=== PATIENT | male | born 1970 | race Caucasian/White ===

== ENCOUNTER 2020-09-07 12:45 | Emergency (ER) | payer MEDICAID ==
[~2020-09-07] VITALS: Ht 180.3 cm; Wt 89.4 kg
[2020-09-07] MEDS ORDERED: OXYcodone/APAP 5/325MG TABLET PO ONE (13:30)
[2020-09-07] MEDS ORDERED: DIPH,PERTUSS(ACELL),TET VAC/PF 0.5 ML IM-VACC ONE ×2 (13:30→13:34)
[2020-09-07] MEDS ORDERED: AMLODIPINE 5 MG TABLET PO ONE (13:30)
[2020-09-07] MEDS ORDERED: LIDOCAINE 2%, 20ML SQ ONE (13:30)
[2020-09-07] MEDS ORDERED: AMLODIPINE 5 MG TABLET ONE (13:34)
[2020-09-07] MEDS ORDERED: LIDOCAINE-MPF 2% ,5ML ONE (13:34)
[2020-09-07] MEDS ORDERED: OXYcodone/APAP 5/325MG TABLET ONE (13:34)
--- NOTE | 2020-09-07 15:01 | NUR ---
PT UPRIGHT ON GURNEY AWAKE & COMFORTABLE, NAD- DENIES PAIN, RESPONDS APPROP TO STAFF, NO NEEDS AT THIS TIME, VISITOR AT BS, CALL LIGHT WITHIN REACH.
[2020-09-07] MEDS ORDERED: CEPHALEXIN 500 MG CAPSULE ONE (15:58)
[2020-09-07] MEDS ORDERED: NEOSPORIN OINT. PKT 1 PACKET ONE (15:58)
[2020-09-07 16:00] VITALS: BP 177/111
[2020-09-07] MEDS ORDERED: CEPHALEXIN 500 MG CAPSULE PO ONE (16:00)
--- NOTE | 2020-09-07 16:00 | NUR ---
PT REMAINS UPRIGHT ON GURNEY AWAKE & COMFORTABLE, NAD- DENIES PAIN, AWAITING WOUND DRESSING, RESPONDS APPROP TO STAFF, NO NEEDS AT THIS TIME, VISITOR AT BS, CALL LIGHT WITHIN REACH.
--- NOTE | 2020-09-07 16:22 | NUR ---
Patient given wound care/discharge instructions and Rx, they have confirmed that they understand the instructions. Patient ambulatory with steady gait. NAD, all questions answered appropriately, denies additional needs at this time. No personal belongings left in room after discharge.
== END 2020-09-07 16:24 | disposition home or self-care (01) ==
LOC: ED 13:30
DX: S60.111A Contusion of right thumb with damage to nail, initial encounter (principal); I10 Essential (primary) hypertension; F17.200 Nicotine dependence, unspecified, uncomplicated; W23.1XXA Caught, crushed, jammed, or pinched between stationary objects, initial encounter; Y93.89 Activity, other specified; Y92.69 Other specified industrial and construction area as the place of occurrence of the external cause; Y99.0 Civilian activity done for income or pay
CPT/HCPCS: 11740; 73140; 90471; 90715; 99284; J3490